=== PATIENT | male | born 1980 | race Caucasian/White ===

== ENCOUNTER 2017-09-29 06:48 | Inpatient (IN) | payer OTHER ==
[~2017-09-29] VITALS: Ht 175.3 cm; Wt 92.1 kg
[2017-09-29 07:04] VITALS: Ht 175.3 cm; Wt 92.1 kg
[2017-09-29 07:36] LABS: BASOPHIL % 0.7 % (0-2); PLATELET COUNT 287 x10^3mcL (130-400); RED CELL DISTRIBUTION WIDTH 13.9 % (11.5-14.5)
[2017-09-29 07:45] LABS: CALCIUM 9.1 mg/dL (8.5-10.1); CARBON DIOXIDE 28.8 mmol/L (21-32); CHLORIDE SERUM 106 mmol/L (98-107); CREATININE SERUM 1.1 mg/dL (0.7-1.3); GFR1 > 60 mL/min; GLUCOSE SERUM 107 mg/dL (74-106); POTASSIUM SERUM 4.2 mmol/L (3.5-5.1); SODIUM SERUM 144 mmol/L (136-145)
[2017-09-29 07:49] LABS: ALKALINE PHOSPHATASE 94 U/L (46-116); ALT/SGPT 66 U/L (16-63); AST/SGOT 29 U/L (15-37); BILIRUBIN TOTAL 0.56 mg/dL (0.20-1.00); LIPASE 174 IU/L (73-393); TOTAL PROTEIN, SERUM 8.1 g/dL (6.4-8.2)
[2017-09-29 13:08] VITALS: BP 149/97
[2017-09-29 16:38] VITALS: BP 130/83
[2017-09-29 20:24] VITALS: BP 123/73
[2017-09-30 06:31] VITALS: BP 105/69
[2017-09-30 08:00] VITALS: BP 115/74
[2017-09-30 17:15] VITALS: BP 131/84
[2017-09-30 21:38] VITALS: BP 129/81
[2017-10-01 06:27] VITALS: BP 115/64
[2017-10-01 07:27] LABS: ALBUMIN 3.3 g/dL (3.4-5.0); ALKALINE PHOSPHATASE 73 U/L (46-116); ALT/SGPT 73 U/L (16-63); AST/SGOT 44 U/L (15-37); BILIRUBIN TOTAL 0.8 mg/dL (0.20-1.00); CALCIUM 8.7 mg/dL (8.5-10.1); CARBON DIOXIDE 29.6 mmol/L (21-32); CHLORIDE SERUM 103 mmol/L (98-107); GFR1 > 60 mL/min; GLUCOSE SERUM 98 mg/dL (74-106); POTASSIUM SERUM 3.3 mmol/L (3.5-5.1); SODIUM SERUM 140 mmol/L (136-145); TOTAL PROTEIN, SERUM 7.3 g/dL (6.4-8.2)
[2017-10-01 07:35] LABS: BASOPHIL % 0.1 % (0-2); PLATELET COUNT 273 x10^3mcL (130-400); RED CELL DISTRIBUTION WIDTH 12.7 % (11.5-14.5)
[2017-10-01] MEDS ORDERED: ACETAMINOPHEN-H1 TA1 PO (07:41)
[2017-10-01 08:02] VITALS: BP 115/64
[2017-10-01 08:48] VITALS: BP 124/86
== END 2017-10-01 11:32 | disposition home or self-care (01) | DRG 263 ==
LOC: ED 06:48 → MU 10:30 → EDBEDREQSVC 10:31 → MU 12:45
PROVIDERS: Emergency Medicine; Internal Medicine Pulmonary Disease; Surgery
PROC: 0FT44ZZ Resection of Gallbladder, Percutaneous Endoscopic Approach (ICD-10-PCS; principal; 2017-09-30 10:30)
DX: K80.01 Calculus of gallbladder with acute cholecystitis with obstruction (principal); F14.10 Cocaine abuse, uncomplicated
CPT/HCPCS: J1956; J2175; J2250; J2270; J2405; J2543; J3010; J3490; J7030; J7050; Q0092